=== PATIENT | male | born 1980 | race Caucasian/White ===

== ENCOUNTER → 2017-11-08 | Outpatient (CLI) | payer OTHER | LOC: M CARPUL 09:12 | DX: R06.02 Shortness of breath (principal); R93.1 Abnormal findings on diagnostic imaging of heart and coronary circulation | CPT/HCPCS: 93306 ==

== ENCOUNTER → 2018-05-08 | Outpatient (CLI) | payer OTHER ==
[~2018-05-08] MED LIST: METHACHOLINE KIT (J7674) INH
== END ==
LOC: M CARPUL 07:19
DX: R06.02 Shortness of breath (principal)
CPT/HCPCS: J7674

== ENCOUNTER → 2018-10-31 | Outpatient (CLI) | payer OTHER ==
--- NOTE | 2018-10-31 18:42 | REP ---
CT chest without contrast: History: Swollen lymph node right side of the neck. Comparison chest CT study November 05, 2017. Also reviewed are images from August 31, [address] findings: As previously reported, there has been no change in the 4 mm noncalcified pulmonary nodules seen in the superior segment of the right lower lobe in the interval since the 2010 prior study. This is felt to be benign. 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 This is also unchanged from both prior studies. The lung dillard remain otherwise clear. No tracheobronchial abnormality is seen. No hilar or mediastinal mass or adenopathy is observed. No extrathoracic mass or adenopathy is seen. No adrenal lesion is seen. Visualized upper abdominal structures are unremarkable. No bony abnormalities seen. Impression: No active disease. Electronically Signed by Luis Chatterjee MD 10/31/2018 07:30 P
== END ==
LOC: M RAD 16:00
PROVIDERS: ATTEND Internal Medicine Pulmonary Disease
DX: R91.1 Solitary pulmonary nodule (principal)